=== PATIENT | male | born 1950 | race Hispanic/Latino ===

== ENCOUNTER 2020-12-19 15:26 | Emergency (ER) | payer MEDICARE ==
[~2020-12-19] VITALS: Ht 170.2 cm; Wt 117.0 kg
[2020-12-19 15:52] VITALS: BP 117/70
[2020-12-19] MEDS ORDERED: LISINOPRIL5 MG PO (15:53)
[2020-12-19] MEDS ORDERED: ELIQUIS5 MG PO (15:54)
[2020-12-19] MEDS ORDERED: METFORMIN500 M2 PO (15:54)
[2020-12-19] MEDS ORDERED: CEPHALEXIN500 M1 PO (17:52)
== END 2020-12-19 18:31 | disposition home or self-care (01) ==
LOC: ED 15:26 → EDSEX 15:56 → ED 15:56
DX: L03.115 Cellulitis of right lower limb (principal); E11.9 Type 2 diabetes mellitus without complications; Z79.84 Long term (current) use of oral hypoglycemic drugs; M79.89 Other specified soft tissue disorders